=== PATIENT | female | born 1970 | race Caucasian/White ===

== ENCOUNTER 2016-08-04 09:25 | Emergency (ER) | payer OTHER ==
[2016-08-04 09:53] VITALS: BP 116/75; PULSE 94; RESP 16; TEMP 98.1; O2SAT 100
--- NOTE | 2016-08-04 10:28 | UCPHY ---
H & P Time Seen by Provider: 08/04/16 10:07 Patient Type: New HPI/ROS: This patient is low back pain that started after swimming using her 's slippers and swimming pool 3 days prior to arrival. She did notice any abrupt pain while swelling but within hours afterwards started getting achy back that is increased in intensity since then right more than left lumbar radiating into the right buttock a bit currently 6/10 intensity, worse with certain movements and with some improvement from Aleve-2 tabs at 6:30 a.m.. No other exacerbating or alleviating factors are noted. She reports mild tingling sensation in the right low back but there is no other associated symptoms. ROS: Constitutional: No fevers or chills. HEENT: No complaints Pulmonary: No chest pain or shortness of breath Cardiac - no chest pain GI: No belly pain. She does have mild nausea that she attributes to pain. Normal bowel movements. : No urinary symptoms Neuro: No focal numbness. No focal weakness. No bowel or bladder incontinence Smoking Status: Never smoked Physical Exam: Physical Exam Vital signs are normal. General: No acute distress HEENT: Atraumatic. Eyes: Pupils equal and react to light. Extraocular motions are intact. Neck: Supple Lungs: Clear to auscultation bilaterally. No respiratory distress. Cardiac: Regular rate and rhythm with no murmur gallop or rub Back: No midline tenderness. She has right more than left paraspinous lumbar tenderness. She maintains good range of motion for flexion. She has mild limitation range of motion lateral flexion toward the right side with increased pain on the right side. No difficulty with back extension or left lateral flexion. Straight leg raise is borderline positive on the left at 15 negative on the right Skin: No rash or pallor. Neuro: Alert. Patient has no light touch sensory deficits. She maintains 5/5 strength bilateral upper and lower extremities including great toe dorsiflexion and plantar flexion. She maintains 2+ symmetric patellar and Achilles DTRs bilaterally Initial differential diagnosis: Low back strain versus disc herniation. No clinical evidence of cauda equina Constitutional: Initial Vital Signs Temperature (C) 36.7 C 08/04/16 09:46 Heart Rate 94 08/04/16 09:46 Respiratory Rate 16 08/04/16 09:46 Blood Pressure 116/75 08/04/16 09:46 O2 Sat (%) 100 08/04/16 09:46 O2 Delivery Mode Room Air Allergies/Adverse Reactions: No Known Allergies Allergy (Unverified 08/04/16 09:52) Home Medications: Medication Instructions Recorded Pnv 10/26/09 Methocarbamol [Robaxin 750 mg (*)] 750 - 1,500 mg PO QID PRN #30 tab 08/04/16 oxyCODONE/APAP 5/325 [Percocet 1 - 2 tab PO Q4-6PRN PRN #20 tab 08/04/16 5/325 (*)] MDM/Departure - [facility] Course/Re-evaluation: I counseled the patient regarding low back strain and regarding disc herniation both top of her list of differential diagnosis. Also demonstrated low back stretches that may help with her his condition. No concerning or focal findings on her exam - Depart Disposition: Home, Routine, Self-Care Clinical Impression: Low back pain Qualifiers: Chronicity: acute Back pain laterality: right Sciatica presence: without sciatica Qualifier Code: (M54.5) Low back pain Condition: Good Instructions: Acute Low Back Pain (ED) Additional Instructions: DX: Low back strain Plan: Ibuprofen 400-600 mg per 6 hours regularly for the next week then as needed. Methocarbamol muscle relaxants as needed. Percocet or Tylenol as needed for pain. No driving alcohol or work on Percocet or methocarbamol Starts daily stretches prior to taking muscle relaxants and Vicodin in the morning. 3-5 minutes each of: "Butterfly stretch," "Sphinx stretch", "pigeon stretch", and hamstring stretch. Avoid lifting more than 5-10 pounds until symptoms improve. Call your primary care physician for a followup appointment in 3-7 days. Go to the emergency department for worsening of your symptoms despite the treatment plan. Prescriptions: oxyCODONE/APAP 5/325 [Percocet 5/325 (*)] 1 - 2 tab PO Q4-6PRN PRN #20 tab PRN Reason: Pain Methocarbamol [Robaxin 750 mg (*)] 750 - 1,500 mg PO QID PRN #30 tab PRN Reason: Muscle Spasms Referrals: Delfino Stanton DO [Primary Care Provider] - As per Instructions - PQRS PQRS Measurement: NA
== END 2016-08-04 10:46 | disposition home or self-care (01) ==
LOC: CED 09:25
DX: M54.5 Low back pain (principal)
CPT/HCPCS: 99203-PO; G0463-PO

== ENCOUNTER → 2018-10-06 | Outpatient (CLI) | payer OTHER | LOC: EMCIMAGING 12:43 | PROVIDERS: ATTEND Physician Assistant Medical | DX: R55 Syncope and collapse (principal) | CPT/HCPCS: 71046-PN ==